=== PATIENT | female | born 1990 | race Caucasian/White ===

== ENCOUNTER 2017-10-04 16:53 | Emergency (ER) | payer BC, OTHER ==
--- NOTE | 2017-10-04 17:26 | EDPHY ---
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 Denies nail injury/paresthesias/decreased range of motion. Reports tetanus up-to- date. She felt immediate moderate pain but that has quickly resolved. It started to bleed and she applied direct pressure. Modifying Factors: See above Comment: ROS: see HPI Constitutional: No fever, no chills, no weight loss Eyes: No blurred vision Respiratory: No shortness of breath, no cough Cardiovascular: No chest pain Gastrointestinal: No nausea, no vomiting no diarrhea Genitourinary: No dysuria Extremities: No myalgias Neurologic: No weakness, no numbness Skin: No rashes Hematologic: No bruising, no bleeding MEDICAL/SURGICAL/SOCIAL HISTORY: Medical history: Generally healthy. Does not take any regular medications. Surgical history: Denies Social history: Employed CONSTITUTIONAL: awake and alert, no obvious distress HEENT: Atraumatic and normocephalic. NECK: supple, no midline tenderness, flexion 45 degrees, extension 45 degrees, right and left lateral flexion 45 degrees. No meningismus. Cardiovascular: Normal S1/S2, regular rate, regular rhythm, without murmur rub or gallop. PULMONARY/CHEST: Symmetrical and nontender. no crepitus. Clear to auscultation bilaterally. Good air movement. No accessory muscle usage. ABDOMEN: Soft, nondistended, nontender, no ecchymosis. PELVIC: no pain with rocking; bilateral hips flexion 125 degrees, extension 30 degrees, with no pain internal rotation and no pain external rotation. BACK: No midline tenderness, no paraspinous spasm, deep tendon reflexes 2/2, no pain with straight leg raise, No foot drop. Achilles reflexes are equal bilaterally. Able to walk on heels and toes without difficulty. EXTREMITIES: 2/2 pulses, strength 5/5, 2.5 cm on left thumb finger pad with 0.5 cm extension into the nail; distal aspect. DIP/PIP/MCP flexion/extension intact with good light touch sensation. no deformities, no clubbing, no cyanosis or edema. NEUROLOGICAL: no focal neuro deficits. GCS 15. Light touch sensation intact. SKIN: Warm and dry, no erythema. no rash. Good capillary refill. Source: Patient Exam Limitations: No limitations - Personal History LMP (Females 10-55): 22-28 Days Ago Current Tetanus/Diphtheria Vaccine: Yes - Medical/Surgical History Hx Asthma: No Hx Chronic Respiratory Disease: No Hx Diabetes: No Hx Cardiac Disease: No Hx Renal Disease: No Hx Cirrhosis: No Hx Alcoholism: No Hx HIV/AIDS: No Hx Splenectomy or Spleen Trauma: No Other PMH: DENIES - Social History Smoking Status: Never smoked Constitutional: Initial Vital Signs Temperature (C) 36.9 C 10/04/17 17:07 Heart Rate 65 10/04/17 17:07 Respiratory Rate 18 10/04/17 17:07 Blood Pressure 114/72 10/04/17 17:07 O2 Sat (%) 97 10/04/17 17:07 O2 Delivery Mode Room Air Allergies/Adverse Reactions: No Known Allergies Allergy (Unverified 10/04/17 17:06) Home Medications: Medication Instructions Recorded Gabapentin 10/04/17 Lexapro 10/04/17 Spironolactone 10/04/17 traZODone 10/04/17 Medical Decision Making - Diagnostics Imaging Results: Imaging Impressions Finger X-Ray 10/04/17 17:35 Impression: Soft tissue injury of the left thumb without fracture or definite radiopaque foreign body. Procedures: Procedure: Laceration repair. Verbal consent was obtained from the patient. The 2.5 cm, simple, 1 layer laceration on the left thumb was anesthetized in the usual fashion with a digital block using 6 mL of 1% lidocaine without epinephrine. The wound was irrigated, draped and explored to its base with a gloved finger. There were no deep structures involved. No tendon injury was identified. The wound was repaired with #8, 500 Prolene. Good hemostasis was achieved and patient tolerated procedure well. Xeroform and Clean sterile dressing applied. The procedure was performed by myself. ED Course/Re-evaluation: X-ray was obtained and shows no foreign body/fracture per my read. + soft tissue swelling noted + nail involvement wound care and laceration repair provided Tetanus up-to-date No signs of neurovascular compromise/tenting of skin/compartment syndrome/ extremities and joints examined above and below area of concern and are neurovascularly intact. Laceration repaired with Prolene Verbal and written wound care instructions provided. This patient was seen under the supervision of my secondary supervising physician. I evaluated care for this patient independently. Differential Diagnosis: Differential diagnosis includes but is not limited to nerve injury, tendon injury, fracture, nail injury, laceration. Departure - Departure Disposition: Home, Routine, Self-Care Clinical Impression: Laceration of left thumb with damage to nail Qualifiers: Encounter type: initial encounter Foreign body presence: without foreign body Qualified Code(s): S61.112A - Laceration without foreign body of left thumb with damage to nail, initial encounter Condition: Good Instructions: Care For Your Stitches (ED), Finger Laceration (ED) Additional Instructions: Keep the dressing dry and in place for 48 hours. After 48 hours, you may remove the dressing; wash the site daily with mild soap and water; then pat dry; apply clean sterile dressing until fully healed. Take Tylenol 650 mg every 4 hours and/or Ibuprofen 600 mg every 8 hours with food as needed for pain. Please return to the emergency room in 7-10 days to have your sutures removed. If there are any concerns of tendon or nerve injury please follow-up with Hand surgery. Allow your nail to slowly grow out. Return to the ER immediately if you experience new or worsening pain, discoloration, numbness, tingling, or any other symptoms that concern you. Referrals: Christopher Vergara MD [Medical Doctor] - As per Instructions
[2017-10-04 18:52] VITALS: BP 124/74
== END 2017-10-04 18:52 | disposition home or self-care (01) ==
PROC: 0HQGXZZ Repair Left Hand Skin, External Approach (ICD-10-PCS; principal; 2017-10-04)
DX: S61.112A Laceration without foreign body of left thumb with damage to nail, initial encounter (principal); W45.8XXA Other foreign body or object entering through skin, initial encounter